=== PATIENT | female | born 1970 | race Native Hawaiian/Other Pacific Islander ===

== ENCOUNTER 2017-03-20 12:38 | Outpatient (CLI) | payer OTHER ==
--- NOTE | 2017-03-20 14:46 | Ultrasound Report ---
RIGHT BREAST ULTRASOUND: 03/20/17 12:38:00 CLINICAL: The patient was referred for an ultrasound guided needle biopsy of a 1 cm mass reported to be at 11 o'clock anterior depth. COMPARISON: 11/19/16 [facility] FINDINGS: Ultrasoundof the outer right breast was performed from 9-12 o'clock and demonstrated no mass to correlate with the previously described 1 cm mass at 11 o'clock anterior depth. A cyst at 12 o'clock subareolar measures 1.1 x 1.1 x 0.9 cm. A cyst at 10 o'clock 2 cm from the nipple measures 6 x 5 x 5 mm and a cyst at 10 o'clock 4 cm from the nipple measures 5 x 3 x 5 mm. No solid mass or shadowing. IMPRESSION: Benign cysts and no solid mass to biopsy. BI-RADS 2 - - Benign RECOMMENDATION: Clinical followup and routine mammographic screening in November 2017.
== END 2017-03-20 12:39 | disposition home or self-care (01) ==
LOC: SPVWC 12:38
PROVIDERS: ATTEND Family Medicine
DX: N60.01 Solitary cyst of right breast (principal); N63 Unspecified lump in breast